=== PATIENT | female | born 1995 | race Caucasian/White ===

== ENCOUNTER 2022-04-13 13:25 | Emergency (ER) | payer BC ==
[~2022-04-13] VITALS: Ht 154.9 cm; Wt 48.1 kg
[2022-04-13 13:30] VITALS: BP_SYST 110
--- NOTE | 2022-04-13 13:30 | NUR ---
Patient to ER bed H1 to gown for evaluation. Side rails up.
--- NOTE | 2022-04-13 13:45 | NUR ---
AMILCAR FISCHER PT Addendum: 04/13/22 at [email or web address] ANTHONY EXAMINING PT
[2022-04-13] MEDS ORDERED: PRED20TA PO (14:18)
[2022-04-13] MEDS ORDERED: VALA10002 PO (14:18)
[2022-04-13 14:30] VITALS: BP_SYST 110
--- NOTE | 2022-04-13 14:30 | NUR ---
Patient given written and verbal discharge instructions and verbalizes understanding. ER MD discussed with patient the results and treatment provided. Patient in stable condition. ID arm band removed. Rx of PREDNISONE AND VALTREX given. Patient educated on pain management and to follow up with PMD. Pain Scale 0/10. Opportunity for questions provided and answered. Medication side effect fact sheet provided.
== END 2022-04-13 14:30 | disposition home or self-care (01) ==
LOC: SED 13:25
DX: G51.0 Bell's palsy (principal); R20.2 Paresthesia of skin; Z79.899 Other long term (current) drug therapy
CPT/HCPCS: 99283